=== PATIENT | male | born 1995 | race Two or more races ===

== ENCOUNTER 2020-09-11 12:56 | Emergency (ER) | payer OTHER ==
[~2020-09-11] VITALS: Ht 188 cm; Wt 81.0 kg
[~2020-09-11 12:56] MED LIST: BO1 TP
[2020-09-11 13:55] VITALS: BP 135/77
== END 2020-09-11 14:37 | disposition home or self-care (01) ==
LOC: ER 12:56
DX: S61.210D Laceration without foreign body of right index finger without damage to nail, subsequent encounter (principal); X58.XXXD Exposure to other specified factors, subsequent encounter
CPT/HCPCS: 99281